=== PATIENT | female | born 1945 | race Caucasian/White ===

== ENCOUNTER 2022-01-22 06:54 | Day surgery (SDC) | payer MEDICARE ==
[2022-01-20 11:10] LABS: MEAN CORPUSCULAR HGB CONC 33.8 g/dL (33.0-36.5); MEAN PLATELET VOLUME 9.3 FL (7.4-10.4); PRE OP HEMATOCRIT 41.6 % (35.0-45.0); PRE OP HEMOGLOBIN 14.1 g/dL (12.0-16.0)
[2022-01-20 11:12] LABS: BASOPHILS # (AUTO) 0.1 X10'3 (0-0.2); BASOPHILS % (AUTO) 1.4 % (0-1); EOSINOPHILS # (AUTO) 0.2 X10'3 (0-0.9); EOSINOPHILS % (AUTO) 3.8 % (0-6); LYMPHOCYTES # (AUTO) 1.7 X10'3 (1.1-4.8); LYMPHOCYTES % (AUTO) 29.5 % (21-51); MEAN CORPUSCULAR HEMOGLOBIN 29.5 PG (27.0-31.0); MEAN CORPUSCULAR VOLUME 87.4 FL (78-98); MONOCYTES # (AUTO) 0.5 X10'3 (0-0.9); MONOCYTES % (AUTO) 8.2 % (2-12); NEUTROPHILS # (AUTO) 3.3 X10'3 (1.8-7.7); NEUTROPHILS % (AUTO) 57.1 % (42-75); PRE OP PLATELET COUNT 283 X10'3 (140-440); RED BLOOD COUNT 4.76 X10'6 (4.20-5.60); RED CELL DISTRIBUTION WIDTH 13.8 % (11.5-14.5)
[2022-01-20 11:31] LABS: ALBUMIN 3.8 G/DL (3.4-5.0); ALBUMIN/GLOBULIN RATIO 1.1 (1.1-1.5); ALKALINE PHOSPHATASE 86 IU/L (46-116); BLOOD UREA NITROGEN 13 MG/DL (7-18); CALCIUM 9.3 MG/DL (8.5-10.1); CHLORIDE 105 MMOL/L (99-107); CREATININE 0.93 MG/DL (0.40-0.90); PRE OP ALT 18 U/L (30-65); PRE OP ANION GAP 8 (8-16); PRE OP AST 18 U/L (10-37); PRE OP BILIRUB, TOTAL 0.8 MG/DL (0.0-1.0); PRE OP GLUCOSE 97 MG/DL (70-104); PRE OP POTASSIUM 3.5 MMOL/L (3.4-5.1); PRE OP SODIUM 144 MMOL/L (135-145); TOTAL CARBON DIOXIDE 30.8 MMOL/L (24-32); TOTAL PROTEIN 7.3 G/DL (6.4-8.2); eGFR 58 ML/MIN
[2022-01-22] VITALS (8 sets, daily range): BP systolic 111–154; BP diastolic 73–82
[~2022-01-22] VITALS: Ht 170.2 cm; Wt 81.2 kg
[~2022-01-22 06:54] MED LIST: BETA1TAB20 PO; CHLO25TA10 PO; ERGO400C PO; MULT-1085 PO; POTA8CAP20 PO; ceFAZolin inj. 2,000 MG in dextrose 5%-water 100 ML IV ONE; famotidine 20mg tablet PO ONE; ringers solution, lacted 1,000 ML IV SCH
[2022-01-22] MEDS ORDERED: BUPIVAcaine/PF 2.5mg/ml (0.25%) 10ml vial ONE (09:57)
[2022-01-22] MEDS ORDERED: bacitracin 15gm ointment TP ONE (09:57)
[2022-01-22] MEDS ORDERED: morphine 4 MG/ML inj SYRINge IV PRN (10:05)
[2022-01-22] MEDS ORDERED: morphine 2 MG/ML inj. syringe IV PRN (10:05)
[2022-01-22] MEDS ORDERED: labetalol 20mg/4ml (5mg/ml) syringe IV PRN (10:05)
[2022-01-22] MEDS ORDERED: fentaNYL/PF 50MCG/1 ML 2ML syringe IV PRN ×2 (10:05)
[2022-01-22] MEDS ORDERED: hydrALAZINE 20mg/ml inj. IV PRN (10:05)
[2022-01-22] MEDS ORDERED: ondansetron/PF 4mg/2ml inj IV PRN (10:05)
[2022-01-22] MEDS ORDERED: ringers solution, lacted 1,000 ML IV SCH (10:05)
[2022-01-22] MEDS ORDERED: LIDOcaine 1%/PF 5ML 10 MG/ML VIAL ONE (10:07)
[2022-01-22] MEDS ORDERED: fentaNYL/PF 50MCG/1 ML 2ML syringe ONE (10:07)
[2022-01-22] MEDS ORDERED: ondansetron/PF 4mg/2ml inj ONE (10:07)
[2022-01-22] MEDS ORDERED: propofol inj 0 ML IV ONE (10:07)
[2022-01-22] MEDS ORDERED: midazolam 1 mg/ML 2ml injection ONE (10:07)
[2022-01-22] MEDS ORDERED: dexamethasone sod phosphate 10mg/ml inj ONE (10:09)
[2022-01-22] MEDS ORDERED: desflurane 240ml liquid inh. IH ONE (10:09)
--- NOTE | 2022-01-22 10:42 | NUR ---
Received from OR via [facility], accompanied by Anesthesiologist and report given by MAYUR Anesthesiologist. PATIENT WAKING UP, NO S/S OF PAIN, V/S WNL, SCD ON, 22G TO RUE, RIGHT FOOT DRESSING JAK WRAP CDI AND ELEVATED RLE. Addendum: 01/22/22 at 1105 by Herve Gotti RN Amended: Links added.
[2022-01-22] MEDS ORDERED: propofol inj 20 ML IV ONE (11:30)
--- NOTE | 2022-01-22 11:47 | NUR ---
ALL DISCHARGE CRITERIA HAS BEEN MET. VSS, PAIN AT A TOLERABLE LEVEL, ABLE TO SAFELY AMBULATE WITH SURGICAL BOOT AND TRANSFER SELF. IV TAKEN OUT WITHOUT ANY COMPLICATIONS. ALL DISCHARGE INSTRUCTIONS COVERED WITH PATIENT AND ALL QUESTIONS ANSWERED. PATIENT TAKEN OUT VIA WHEELCHAIR TO PERSONAL VEHICLE WHERE FAMILY DROVE PATIENT HOME. Addendum: 01/22/22 at 1218 by Herve Gotti RN Amended: Links added.
--- NOTE | 2022-01-22 13:56 | NUR ---
CALLED DR. PABLO ABOUT PATIENT'S HOME PAIN MEDICATION (NORCO) THAT SHE COULD NOT TAKE BECAUSE OF PAST HALLUCINATION REACTION. PATIENT STATED THAT SHE USED ASPIRIN FOR PREVIOUS SURGERY. MD INSTRUCTED NURSE TO INFORM PATIENT TO USE IT, IF IT DID NOT HELP SHE COULD CONTACT HIS OFFICE TO BE PRESCRIBED BY SOMETHING ELSE. RN LEFT VOICEMAIL TO PATIENT'S SPOUSE CELLPHONE.
== END 2022-01-22 11:47 | disposition home or self-care (01) ==
LOC: PAS 06:54
PROVIDERS: ATTEND Podiatrist Foot & Ankle Surgery
DX: T84.84XA Pain due to internal orthopedic prosthetic devices, implants and grafts, initial encounter (principal); Y83.8 Other surgical procedures as the cause of abnormal reaction of the patient, or of later complication, without mention of misadventure at the time of the procedure; Y92.89 Other specified places as the place of occurrence of the external cause; Z79.899 Other long term (current) drug therapy; Z98.890 Other specified postprocedural states; Z90.49 Acquired absence of other specified parts of digestive tract; Z96.643 Presence of artificial hip joint, bilateral; I10 Essential (primary) hypertension; Z82.49 Family history of ischemic heart disease and other diseases of the circulatory system
CPT/HCPCS: 20680; 36415; 73620; 80053; 82948; 85025; 93005; A6223; J0690; J1100; J2250; J2405; J2704; J3010; J3490; J7030; J7060; J7120; Z7506; Z7512; 76000; A4215; A4618; A6449; A7000